=== PATIENT | female | born 1955 | race Caucasian/White ===

== ENCOUNTER 2023-03-18 09:00 | Outpatient (RCR) | payer MEDICARE, OTHER, SELFPAY | END 2023-05-02 16:44 | disposition home or self-care (01) | PROVIDERS: PCP Family Medicine; Visit Provider Family Medicine | DX: M54.50 Low back pain, unspecified (principal); G89.29 Other chronic pain; Z51.89 Encounter for other specified aftercare | CPT/HCPCS: 97110; 97140; 97161; 97535 ==

== ENCOUNTER 2023-03-31 12:54 | Inpatient (IN) | payer MEDICARE, OTHER, SELFPAY ==
[2023-03-31] VITALS (18 sets, daily range): BP systolic 120–185; BP diastolic 60–89; PULSE 82–105; RESP 16–20; TEMP 36.5–37.6; O2SAT 91–99; BMI 42.3; BMI 52.8
--- NOTE | 2023-03-31 13:42 | CRLHL7_ITS ---
For Patients: As a result of the Century Cures Act, medical imaging exams and procedure reports are released immediately into your electronic medical record. You may view this report before your referring provider. If you have questions, please contact your health care provider. INDICATION: Perineal pain; suspect perineal infection or abscess. Comparison: None. TECHNIQUE: CT abdomen and pelvis with intravenous contrast; coronal and sagittal reformats. FINDINGS: No abnormal intra pulmonary nodular densities through the lung bases. No evidence of pleural effusion. Normal size cardiac silhouette without any evidence of pericardial effusion. No focal hepatic or splenic pathology. No pancreatic pathology. Cholelithiasis. No evidence of biliary duct dilatation. No adrenal pathology. A 1.7 x 1 x 1.5 cm nonobstructing calculus lower pole calyx right kidney. No obstructive uropathy or perinephric pathology on either side. No retroperitoneal lymphadenopathy. No evidence of abdominal or pelvic ascites. Normal appendix. No pneumoperitoneum or intestinal obstruction. A 3.3 x 3.1 cm cystic area identified in the region of right adnexa. No obvious pathology involving the perineum on the visualized images. IMPRESSION: 1. No pathology in the imaged perineum; patient is being brought back to the CT and will obtain more images further down into the perineum and I will provide an addendum report. 2. Diverticulosis sigmoid colon without any CT evidence of diverticulitis or abscess. 3. Normal appendix. 4. A 17 x 15 mm nonobstructing calculus right lower pole calyx. 5. Cholelithiasis. Please note that all CT scans at this facility use dose modulation, iterative reconstruction, and/or weight-based dosing when appropriate to reduce radiation dose to as low as reasonably achievable. Dictated by Garland Hubbard MD @ 03/31/2023 2:53:52 PM ----- ADDENDUM ----- Addendum report: Additional images through the perineum are available. There is a 3.2 x 2.9 x 4.6 cm low dense area identified to the right of the midline adjacent to the anus in the right perineum most likely indicating an abscess. No fistulous tract could be identified to the rectum. IMPRESSION: 1. A 4.6 x 3.2 x 2.9 cm low dense area identified to the right of the midline in the perineum most likely representing an abscess. 2. No fistulous communication to the rectum. Dictated by Garland Hubbard MD @ Mar 31 2023 4:55PM Signed by:?Garland Hubbard MD @03/31/2023 2:53:52 PM (Electronically Signed)
--- NOTE | 2023-03-31 13:46 | ED_ITS ---
HPI - General Adult General Chief complaint: Urogenital Problems, Female Stated complaint: Randi area pain Time Seen by Provider: 03/31/23 13:10 History of Present Illness HPI narrative: This is a pleasant 68-year-old female with a history of diabetes, high cholesterol, high blood pressure, obesity, who presents to the ER today with progressively worsening pain involving her perineal area. She went to his TV next concert a few nights ago. The chair that she was assisted in for the [employer] was malfunctioning and would flip up when she tried to sit on it. So she leaned against the top edge of the chair during the concert. Since then she has had pain involving her perineum, posterior to her vagina but anterior to her rectum that is been getting steadily worse. It is painful to sit, painful to lay on her back. There is a swollen lump that seems to be getting bigger. She has not had any vaginal bleeding. The pain does not affect her urination. No rectal pain or pain with bowel movements. The pain does not really seem to be related to that. No bleeding or discharge from the area. No fever. No spreading into her buttock or down her leg. The pains been getting steadily worse, prompting her to come to the ER this afternoon. Related Data Home Medications Medication Instructions Recorded Confirmed atorvastatin 40 mg tablet 40 mg PO 06/19/22 06/19/22 canagliflozin 100 mg tablet 100 mg PO 06/19/22 06/19/22 (Invokana) cyanocobalamin (vitamin B-12) 1,000 mcg PO 06/19/22 06/19/22 1,000 mcg tablet diabetic supplies, miscellan. 06/19/22 06/19/22 gabapentin 400 mg capsule 400 mg PO 06/19/22 06/19/22 hydrochlorothiazide 25 mg tablet 25 mg PO 06/19/22 06/19/22 insulin NPH-regular 70-30 U-100 subcut 06/19/22 06/19/22 insulin 100 unit/mL subcutaneous pen (Novolin 70-30 FlexPen U-100 Insulin) losartan 100 mg tablet 100 mg PO 06/19/22 06/19/22 metformin 1,000 mg tablet 1,000 mg PO 06/19/22 06/19/22 metoprolol tartrate 100 mg tablet 100 mg PO 06/19/22 06/19/22 omeprazole 20 mg capsule,delayed 20 mg PO 06/19/22 06/19/22 release pen needle, diabetic 32 gauge x #50 ea 06/19/22 06/19/22 (BD Rere 2nd Gen Pen Needle) spironolactone 25 mg tablet 25 mg PO 06/19/22 06/19/22 Allergies Allergy/AdvReac Type Severity Reaction Status Date / Time avocado Allergy Gastrointestinal Verified 03/31/23 14:08 Upset Sulfa (Sulfonamide Allergy Gastrointestinal Verified 03/31/23 14:08 Antibiotics) Upset Review of Systems Narrative: Negative [facility] Medical History (Updated 03/31/23 @ 18:11 by Leon Chi MD) Sleep apnea ?G47.30 - Sleep apnea, unspecified (ICD-10) GERD (gastroesophageal reflux disease) ?K21.9 - Gastro-esophageal reflux disease without esophagitis (ICD-10) Heart murmur ?R01.1 - Cardiac murmur, unspecified (ICD-10) Obstructive sleep apnea treated with continuous positive airway pressure (CPAP) ?G47.33 - Obstructive sleep apnea (adult) (pediatric) (ICD-10) ?Z99.89 - Dependence on other enabling machines and devices (ICD-10) Morbid obesity ?E66.01 - Morbid (severe) obesity due to excess calories (ICD-10) Hypertension ?I10 - Essential (primary) hypertension (ICD-10) Hyperlipidemia ?E78.5 - Hyperlipidemia, unspecified (ICD-10) Diabetic neuropathy ?E11.40 - Type 2 diabetes mellitus with diabetic neuropathy, unspecified (ICD-10) Cellulitis in diabetic foot ?E11.628 - Type 2 diabetes mellitus with other skin complications (ICD-10) ?L03.119 - Cellulitis of unspecified part of limb (ICD-10) Anticoagulation goal of INR 2 to 3 ?Z51.81 - Encounter for therapeutic drug level monitoring (ICD-10) ?Z79.01 - buttermaker (current) use of anticoagulants (ICD-10) Type 2 diabetes mellitus ?E11.9 - Type 2 diabetes mellitus without complications (ICD-10) Surgical History (Updated 06/19/22 @ 08:21 by Neida Elizondo ~ [employer], [employer]) Status post hysterectomy ?Z90.710 - Acquired absence of both cervix and uterus (ICD-10) 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) ?Z96.651 - Presence of right artificial knee joint (ICD-10) Status post total left knee replacement (10/20/18) ?Z96.652 - Presence of left artificial knee joint (ICD-10) Family History (Updated 06/19/22 @ 08:37 by Neida El[facility] ~ [facility] Father Myocardial infarction Mother High blood pressure Brother Diabetes High blood pressure Maternal Grandmother Diabetes Coronary artery disease Social History What is your current living situation?: I presently have a place to live Problems where you live: no known problems Problems where you live details: none In the past 12 months, utilities in danger of being shut off: no In the past 12 mos, have been you worried that your food would run out before you had money to buy more?: never true In the past 12 mos, the food you bought just didn't last and you didn't have money to buy more?: never true Highest level of school completed/degree received: Associate degree: occupational, technical, vocational program Smoking Status: Former smoker How often do you have a drink containing alcohol: 4 or more times a week How many standard drinks containing alcohol do you have on a typical day: 1 or 2 How often do you have six or more drinks on one occasion: Never AUDIT-C Alcohol total score: 4 Non-prescribed substance use: denies use Caffeine: Yes (couple cups of coffee) How often does anyone, including family, friends and others, physically hurt you : never How often does anyone, including family, friends and others, insult or talk down to you: never How often does anyone, including family, friends and others, threaten you with harm: never How often does anyone, including family, friends and others, scream or curse at you: never service: No Exam Narrative: Exam Narrative: Constitutional: Appears well-developed and well-nourished. Alert. Conversant. Non toxic. HENT: Head: Atraumatic. Nose: Nose normal. Mouth/Throat: Oral mucosa is clear and moist. no trismus. Pharynx normal. Tonsils symmetric. No tonsillar enlargement, erythema, or exudate. Eyes: Conjunctivae normal. EOM normal. Pupils equal, round, and reactive to light. No scleral icterus. Neck: Normal range of motion. Neck supple. No tracheal deviation present. Cardiovascular: Normal rate, regular rhythm. No gallop. No friction rub. No murmur heard. Symmetric radial artery pulses Pulmonary/Chest: Effort normal. No stridor. No respiratory distress. No wheezes. No rales. No rhonchi . No tenderness. Abdominal: Soft. Bowel sounds normal. No distension. No mass. No tenderness. No rebound. No guarding. Pelvic exam: Performed with female business services director. Patient preferred to do the exam laying in the left lateral decubitus position with her right leg forward. Visualized portions of the external vagina and posterior vagina appear normal. No speculum or cervical exam was performed. There is no evidence for swelling or inflammation of the labia majora or minora. No evidence for Bartholin gland cyst. External rectum is normal. She does have a couple of small hemorrhoids that appear not to be thrombosed. No evidence for anal fissure. There does appear to be erythema and induration of the tissue of the perineum. There is a 1 x 3 cm area of erythematous, fluctuant soft tissue on the perineum more on the right side than on the left as well as tenderness of her left proximal/medial buttock. No redness or warmth of the buttock skin itself. Musculoskeletal: RUE: Normal range of motion. No tenderness. No deformity LUE: Normal range of motion. No tenderness. No deformity RLE: Normal range of motion. No edema. No tenderness. No deformity LLE: Normal range of motion. No edema. No tenderness. No deformity Lymph: No cervical adenopathy. Neurological: Alert and oriented to person, place, and time. Normal strength. CN II-VII intact. No sensory deficit. GCS eye subscore is 4. GCS verbal subscore is 5. GCS motor subscore is 6. Normal coordination Skin: Skin is warm and dry. No rash noted. No pallor. Normal capillary refill. Psychiatric: Normal mood. Normal affect. Const: Vital Signs, click to edit/add: Vital Signs - 24 hr 03/31/23 13:00 03/31/23 15:26 Temperature 98.5 F Pulse Rate [Right Pulse Oximeter] 87 86 Respiratory Rate 18 20 Blood Pressure [Ri ght Upper Arm] 151/89 H 129/60 Pulse Oximetry 96 92 Oxygen Delivery Me thod Room Air Room Air Course Vital Signs Vital signs: Initial Vital Signs Temperature 98.5 F 03/31/23 13:00 Temperature Source Temporal Artery Scan 03/31/23 13:00 Pulse Rate 87 03/31/23 13:00 Pulse Rhythm Regular 03/31/23 13:00 Pulse Strength 3+ Normal 03/31/23 13:00 Respiratory Rate 18 03/31/23 13:00 Blood Pressure 151/89 H 03/31/23 13:00 Blood Pressure Mean 109 H 03/31/23 13:00 Blood Pressure Position Sitting 03/31/23 13:00 Pulse Oximetry 96 03/31/23 13:00 Oxygen Delivery Method Room Air 03/31/23 13:00 Vital Signs Temperature 98.5 F 03/31/23 13:00 Pulse Rate 87 03/31/23 13:00 Respiratory Rate 18 03/31/23 13:00 Blood Pressure 151/89 H 03/31/23 13:00 Pulse Oximetry 96 03/31/23 13:00 Oxygen Delivery Method Room Air 03/31/23 13:00 Temperature 98.9 F 03/31/23 18:44 Pulse Rate 82 03/31/23 18:44 Respiratory Rate 20 03/31/23 18:44 Blood Pressure 147/82 H 03/31/23 18:44 Pulse Oximetry 96 03/31/23 18:44 Oxygen Delivery Method Room Air 03/31/23 18:44 Medical Decision Making [facility] Narrative Medical decision making narrative: Pleasant 68-year-old female presenting the ER today with progressively worsening perineal pain over the past few days. It started after she sat on the upper edge of a chair during the concert a few nights ago. Differential would include compression injury/hematoma/trauma. Would also include infectious etiology such as cellulitis, perineal abscess, Faye's, vaginal pathology such as labial abscess or hematoma, Bartholin gland cyst. Differential would also include rectal pathology such as hemorrhoid, fissure. Clinical exam reveals evidence for an indurated inflamed pinkish area on the right side of the perineum. Differential would primarily include abscess/infection verses hematoma. She is not febrile. White count is borderline upper limits of normal. CT scan does show a 4.6 x 3.2 x 2.9 cm area of fluid just to the right the midline in the perineum which is concerning for abscess both clinically and radiographically. This would be too large to be simply hematoma. She is hemodynamically stable but lactic acid mildly elevated at 3.1. 2 L IV fluid bolus ordered and repeat lactic acid[]. Discussed with surgery, Dr. sylvester. She will take the patient to the OR for exploration and drainage. We will start Shaniquan here in the ER. Lab Data Labs: Lab Results 03/31/23 Range/Units 13:50 WBC 10.90 (4.50-11.00) K/uL RBC 4.93 (4.00-5.20) m/uL Hgb 10.0 L (12.0-16.0) gm/dL Hct 36.2 (33.0-51.0) % MCV 73 L (80-100) fL MCH 20 L (26-34) pg MCHC 28 L (32-36) gm/dL RDW Coeff of Susan 18.2 H (11.5-15.5) % Plt Count 285 (140-440) K/uL Neut % (Auto) 75.2 H (42.0-72.0) % Lymph % (Auto) 12.9 L (20-44) % Jefferson % (Auto) 10.1 (0.0-11.0) % Eos % (Auto) 1.3 (0.0-7.0) % Baso % (Auto) 0.3 (0.0-3.0) % Neut # (Auto) 8.20 H (1.7-7.0) K/uL Lymph # (Auto) 1.40 (0.90-2.90) K/uL Jefferson # (Auto) 1.10 H (0.00-0.90) K/UL Eos # (Auto) 0.14 (0.00-0.50) K/uL Baso # (Auto) 0.03 (0.00-0.30) K/uL Abs Immat Gran (auto) 0.02 (0.00-0.30) K/uL Imm/Tot Granulo (auto) 0.2 % Sodium 136 (135-149) mmol/L Potassium 4.0 (3.6-5.1) mmol/L Chloride 98 (96-114) mmol/L Carbon Dioxide 27 (20-32) mmol/L BUN 27 (7-30) mg/dL Creatinine 1.2 (0.5-1.5) mg/dL Estimated Creat Clear 44.85 Estimated GFR 50 ml/min Glucose 192 H (60-115) mg/dL Lactate 3.1 H (0.5-1.9) mmol/L Calcium 8.8 (8.4-10.6) mg/dL POC Creatinine 1.3 (0.6-1.3) mg/dl Imaging Data CT scan - abdomen: Attestation: I have reviewed the pertinent imaging results. Radiologist's impression: IMPRESSION: 1. No pathology in the imaged perineum; patient is being brought back to the CT and will obtain more images further down into the perineum and I will provide an addendum report. 2. Diverticulosis sigmoid colon without any CT evidence of diverticulitis or abscess. 3. Normal appendix. 4. A 17 x 15 mm nonobstructing calculus right lower pole calyx. 5. Cholelithiasis. IMPRESSION: 1. No pathology in the imaged perineum; patient is being brought back to the CT and will obtain more images further down into the perineum and I will provide an addendum report. 2. Diverticulosis sigmoid colon without any CT evidence of diverticulitis or abscess. 3. Normal appendix. 4. A 17 x 15 mm nonobstructing calculus right lower pole calyx. 5. Cholelithiasis. Please note that all CT scans at this facility use dose modulation, iterative reconstruction, and/or weight-based dosing when appropriate to reduce radiation dose to as low as reasonably achievable. Dictated by Garland Hubbard MD @ 03/31/2023 2:53:52 PM ----- ADDENDUM ----- Addendum report: Additional images through the perineum are available. There is a 3.2 x 2.9 x 4.6 cm low dense area identified to the right of the midline adjacent to the anus in the right perineum most likely indicating an abscess. No fistulous tract could be identified to the rectum. IMPRESSION: 1. A 4.6 x 3.2 x 2.9 cm low dense area identified to the right of the midline in the perineum most likely representing an abscess. 2. No fistulous communication to the rectum. Discharge Plan Discharge Clinical Impression: Abscess of perineum Patient Disposition: Admitted As Observation
[2023-03-31 14:01] LABS: Lactate* 3.1 mmol/L (0.5-1.9)
[2023-03-31] MEDS: LIDOCAINE/PRILOCAINE 2.5-2.5% CREAM 1 APPLIC TOPICAL (14:01)
[2023-03-31 14:02] LABS: Basophils Absolute Auto 0.03 K/uL (0.00-0.30); Basophils Percent Auto 0.3 % (0.0-3.0); Eosinophils Absolute Auto 0.14 K/uL (0.00-0.50); Eosinophils Percent Auto 1.3 % (0.0-7.0); Hematocrit 36.2 % (33.0-51.0); Immature Granulocytes Abs Auto 0.02 K/uL (0.00-0.30); Immature Granulocytes Pct Auto 0.2 %; Lymphocytes Percent Auto 12.9 % (20-44); Mean Corpuscular HGB Conc 28 gm/dL (32-36); Mean Corpuscular Hemoglobin 20 pg (26-34); Mean Corpuscular Volume 73 fL (80-100); Monocytes Percent Auto 10.1 % (0.0-11.0); Neutrophils Percent Auto 75.2 % (42.0-72.0); Platelet Count* 285 K/uL (140-440); RDW Coefficient of Variation % 18.2 % (11.5-15.5); Red Blood Count 4.93 m/uL (4.00-5.20)
[2023-03-31 14:05] LABS: Slide Review Reflex No
[2023-03-31 14:16] LABS: Chloride* 98 mmol/L (96-114); Sodium* 136 mmol/L (135-149)
[2023-03-31 14:19] LABS: Carbon Dioxide* 27 mmol/L (20-32); Creatinine* 1.2 mg/dL (0.5-1.5); Est. Creatinine Clearance* 44.85; Estimated Glomerular Filt Rate 50 ml/min
[2023-03-31 14:20] LABS: Blood Urea Nitrogen* 27 mg/dL (7-30); Calcium* 8.8 mg/dL (8.4-10.6); Glucose* 192 mg/dL (60-115)
[2023-03-31 14:29] LABS: Creatinine, Point-of-Care* 1.3 mg/dl (0.6-1.3)
[2023-03-31] MEDS: KETOROLAC 15 MG/ML inj IVP (15:36)
[2023-03-31] MEDS: 0.9 % SODIUM CHLORIDE 1000 ml 1,000 ML IV ×2 (17:37→21:12)
[2023-03-31] MEDS: PIPERACILLIN/TAZOBACTAM 4.5 GM in 0.9 % SODIUM CHLORIDE Mini-bag 100 ML IVPB (17:37)
--- NOTE | 2023-03-31 17:48 | P.IMHP_ITS ---
Hospitalist- H&P: HPI History of Present Illness Date Seen: 03/31/23 Chief complaint: Randi area pain Narrative: Carmen Torres is a 68 year old female with past medical history of MATIAS (on cpap), Type II DM, morbid obesity pain presenting for evaluation of pain in sacrum. The patient went to a concern in [place] on Saturday (Dimitri Tate). She had an uncomfortable chair and sat on the ledge for most of concert. She has had progressive worsening pain and presented to ED where CT AP showed a 4.6 x 3.2 x 2.9 cm area of fluid just to the right the midline in the perineum. The patient was afebrile, HD stable. Notable labs included normal WBC, lactate 3.1. She was given IVF bolus and zosyn. She denies chest pain, sob, fever, nausea, vomiting. IMPRESSION: 1. No pathology in the imaged perineum; patient is being brought back to the CT and will obtain more images further down into the perineum and I will provide an addendum report. 2. Diverticulosis sigmoid colon without any CT evidence of diverticulitis or abscess. 3. Normal appendix. 4. A 17 x 15 mm nonobstructing calculus right lower pole calyx. 5. Cholelithiasis. [facility] Medical History (Updated 03/31/23 @ 18:11 by Leon Chi MD) Sleep apnea ?G47.30 - Sleep apnea, unspecified (ICD-10) GERD (gastroesophageal reflux disease) ?K21.9 - Gastro-esophageal reflux disease without esophagitis (ICD-10) Heart murmur ?R01.1 - Cardiac murmur, unspecified (ICD-10) Obstructive sleep apnea treated with continuous positive airway pressure (CPAP) ?G47.33 - Obstructive sleep apnea (adult) (pediatric) (ICD-10) ?Z99.89 - Dependence on other enabling machines and devices (ICD-10) Morbid obesity ?E66.01 - Morbid (severe) obesity due to excess calories (ICD-10) Hypertension ?I10 - Essential (primary) hypertension (ICD-10) Hyperlipidemia ?E78.5 - Hyperlipidemia, unspecified (ICD-10) Diabetic neuropathy ?E11.40 - Type 2 diabetes mellitus with diabetic neuropathy, unspecified (ICD-10) Cellulitis in diabetic foot ?E11.628 - Type 2 diabetes mellitus with other skin complications (ICD-10) ?L03.119 - Cellulitis of unspecified part of limb (ICD-10) Anticoagulation goal of INR 2 to 3 ?Z51.81 - Encounter for therapeutic drug level monitoring (ICD-10) ?Z79.01 - manager long term care (current) use of anticoagulants (ICD-10) Type 2 diabetes mellitus ?E11.9 - Type 2 diabetes mellitus without complications (ICD-10) Surgical History (Updated 06/19/22 @ 08:21 by Neida Elizondo ~ [facility]) Status post hysterectomy ?Z90.710 - Acquired absence of both cervix and uterus (ICD-10) 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) ?Z96.651 - Presence of right artificial knee joint (ICD-10) Status post total left knee replacement (10/20/18) ?Z96.652 - Presence of left artificial knee joint (ICD-10) Family History (Updated 06/19/22 @ 08:37 by Neida Elizondo ~ [facility], [facility]) Father Myocardial infarction Mother High blood pressure Brother Diabetes High blood pressure Maternal Grandmother Diabetes Coronary artery disease Social History What is your current living situation?: I presently have a place to live Problems where you live: no known problems Problems where you live details: none In the past 12 months, utilities in danger of being shut off: no In the past 12 mos, have been you worried that your food would run out before you had money to buy more?: never true In the past 12 mos, the food you bought just didn't last and you didn't have money to buy more?: never true Highest level of school completed/degree received: Associate degree: occupational, technical, vocational program Smoking Status: Former smoker How often do you have a drink containing alcohol: 4 or more times a week How many standard drinks containing alcohol do you have on a typical day: 1 or 2 How often do you have six or more drinks on one occasion: Never AUDIT-C Alcohol total score: 4 Non-prescribed substance use: denies use Caffeine: Yes (couple cups of coffee) How often does anyone, including family, friends and others, physically hurt you : never How often does anyone, including family, friends and others, insult or talk down to you: never How often does anyone, including family, friends and others, threaten you with harm: never How often does anyone, including family, friends and others, scream or curse at you: never service: No Meds Home Medications and Allergies Home Medications Medication Instructions Recorded Confirmed Type atorvastatin 40 mg tablet 40 mg PO 06/19/22 06/19/22 History canagliflozin 100 mg tablet 100 mg PO 06/19/22 06/19/22 History (Invokana) cyanocobalamin (vitamin B-12) 1,000 mcg PO 06/19/22 06/19/22 History 1,000 mcg tablet diabetic supplies, miscellan. 06/19/22 06/19/22 History gabapentin 400 mg capsule 400 mg PO 06/19/22 06/19/22 History hydrochlorothiazide 25 mg tablet 25 mg PO 06/19/22 06/19/22 History insulin NPH-regular 70-30 U-100 subcut 06/19/22 06/19/22 History insulin 100 unit/mL subcutaneous pen (Novolin 70-30 FlexPen U-100 Insulin) losartan 100 mg tablet 100 mg PO 06/19/22 06/19/22 History metformin 1,000 mg tablet 1,000 mg PO 06/19/22 06/19/22 History metoprolol tartrate 100 mg tablet 100 mg PO 06/19/22 06/19/22 History omeprazole 20 mg capsule,delayed 20 mg PO 06/19/22 06/19/22 History release pen needle, diabetic 32 gauge x #50 ea 06/19/22 06/19/22 History 5/32 (BD Rere 2nd Gen Pen Needle) spironolactone 25 mg tablet 25 mg PO 06/19/22 06/19/22 History Allergies Allergy/AdvReac Type Severity Reaction Status Date / Time avocado Allergy Gastrointestinal Verified 03/31/23 14:08 Upset Sulfa (Sulfonamide Allergy Gastrointestinal Verified 03/31/23 14:08 Antibiotics) Upset Exam Narrative: Exam Narrative: Gen: no acute distress HEENT: NCAT EOMI mmm Neck: Supple CV: RRR normal s1 s2 Lungs: CTAB Abd: Soft,nt, nd Neuro: Alert, oriented, CN grossly intact; nonfocal screening?exam Psych: appropriate affect MSK: age appropriate muscle mass Skin; Warm, dry no rash on face Const: Vital Signs, click to edit/add: Vital Signs - 24 hr 08/13/23 13:00 03/31/23 15:26 Temperature 98.5 F Pulse Rate [Right Pulse Oximeter] 87 86 Respiratory Rate 18 20 Blood Pressure [Ri ght Upper Arm] 151/89 H 129/60 Pulse Oximetry 96 92 Oxygen Delivery Me thod Room Air Room Air Hospitalist - H&P: Result Labs Labs: Short CBC 03/31/23 Range/Units 13:50 WBC 10.90 (4.50-11.00) K/uL Hgb 10.0 L (12.0-16.0) gm/dL Hct 36.2 (33.0-51.0) % Plt Count 285 (140-440) K/uL BMP 03/31/23 13:50 Sodium 136 Potassium 4.0 Chloride 98 Carbon Dioxide 27 BUN 27 Creatinine 1.2 Glucose 192 H Calcium 8.8 Assessment and Plan Assessment and plan (1) Abscess of perineum: Status: Acute (2) Morbid obesity with BMI of 50.0-59.9, adult: Problem comment: BMI 52.9 Status: Acute (3) Type 2 diabetes mellitus: Status: Acute Plan Assessment: Carmen Torres is a 68 year old female with past medical history of MATIAS (on cpap), Type II DM, morbid obesity pain presenting for evaluation of pain in sacrum. The patient went to a concern in [place] on Saturday (Dimitri Tate). She had an uncomfortable chair and sat on the ledge for most of concert. She has had progressive worsening pain and presented to ED where CT AP showed a 4.6 x 3.2 x 2.9 cm area of fluid just to the right the midline in the perineum. The patient was afebrile, HD stable. Notable labs included normal WBC, lactate 3.1. She was given IVF bolus and zosyn. She denies chest pain, sob, fever, nausea, vomiting. 1. Perineal abscess 2. Hx of Type II DM 3. Lactic acidosis 4. CKD 3 5. Anemia of CKD/microcytic anemia 6. Hx of MATIAS on CPAP Plan -admit to inpatient -IVF -continue zoysn -NPO -pain control -SSI -Gen Surg consult for anticipated I&D -f/u Cx -cpap Code-Full DVT ppx-heparin subq following surgery
--- NOTE | 2023-03-31 18:16 | ED.NURSE ---
report given to giorgio Hawley transferred to [facility] via wheelchair.
--- NOTE | 2023-03-31 19:37 | PC.NURSE ---
End of Shift: Patient pleasant and cooperative, arrived to the floor about 1934. Patient reported perineal pain 10/26. Patient vitally stable, lungs clear, BS WNL, IV running bolus. Patient independent and urinated in toilet upon arrival. Admission completed.
[2023-03-31] MEDS: 0.9 % SODIUM CHLORIDE 1000 ml 1,000 ML 125 ML IV (19:47)
--- NOTE | 2023-03-31 20:33 | PM.GSCN ---
History of Present Illness Consult details Date Seen: 03/31/23 Consult date: 03/31/23 Narrative: Patient is a 68-year-old female, with morbidly obese, type 2 diabetic on insulin, who presented to the emergency department with worsening perianal pain. She states that the pain started on Saturday and has just increased in intensity. It is uncomfortable to lie down or sit. She denies any drainage from it. She does report some subjective fevers and chills at home. She has never had anything like this before. Denies any diarrhea or constipation. Her last bowel movement was this morning and normal per the patient. Denies any blood in the stool or pain with a bowel movement. She does take insulin on a daily basis. She reports her sugars have been around 130, but admits to not checking them every day. Review of Systems Status of ROS: Reports: 6 or more systems reviewed and unremarkable except as noted in History and below [facility] Medical History (Updated 03/31/23 @ 20:37 by Kelle Guillermo MD) Sleep apnea ?G47.30 - Sleep apnea, unspecified (ICD-10) GERD (gastroesophageal reflux disease) ?K21.9 - Gastro-esophageal reflux disease without esophagitis (ICD-10) Heart murmur ?R01.1 - Cardiac murmur, unspecified (ICD-10) Obstructive sleep apnea treated with continuous positive airway pressure (CPAP) ?G47.33 - Obstructive sleep apnea (adult) (pediatric) (ICD-10) ?Z99.89 - Dependence on other enabling machines and devices (ICD-10) Morbid obesity ?E66.01 - Morbid (severe) obesity due to excess calories (ICD-10) Hypertension ?I10 - Essential (primary) hypertension (ICD-10) Hyperlipidemia ?E78.5 - Hyperlipidemia, unspecified (ICD-10) Diabetic neuropathy ?E11.40 - Type 2 diabetes mellitus with diabetic neuropathy, unspecified (ICD-10) Cellulitis in diabetic foot ?E11.628 - Type 2 diabetes mellitus with other skin complications (ICD-10) ?L03.119 - Cellulitis of unspecified part of limb (ICD-10) Anticoagulation goal of INR 2 to 3 ?Z51.81 - Encounter for therapeutic drug level monitoring (ICD-10) ?Z79.01 - long term care phlebotomist (current) use of anticoagulants (ICD-10) Type 2 diabetes mellitus ?E11.9 - Type 2 diabetes mellitus without complications (ICD-10) Surgical History (Updated 06/19/22 @ 08:21 by Neida Elizondo ~ [facility]) Status post hysterectomy ?Z90.710 - Acquired absence of both cervix and uterus (ICD-10) 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) ?Z96.651 - Presence of right artificial knee joint (ICD-10) Status post total left knee replacement (10/20/18) ?Z96.652 - Presence of left artificial knee joint (ICD-10) Family History (Updated 06/19/22 @ 08:37 by Neida Elizondo ~ [facility], [facility]) Father Myocardial infarction Mother High blood pressure Brother Diabetes High blood pressure Maternal Grandmother Diabetes Coronary artery disease Social History What is your current living situation?: I presently have a place to live Problems where you live: no known problems Problems where you live details: none In the past 12 months, utilities in danger of being shut off: no In the past 12 mos, have been you worried that your food would run out before you had money to buy more?: never true In the past 12 mos, the food you bought just didn't last and you didn't have money to buy more?: never true Highest level of school completed/degree received: Associate degree: occupational, technical, vocational program Smoking Status: Former smoker How often do you have a drink containing alcohol: 4 or more times a week How many standard drinks containing alcohol do you have on a typical day: 1 or 2 How often do you have six or more drinks on one occasion: Never AUDIT-C Alcohol total score: 4 Non-prescribed substance use: denies use Caffeine: Yes (couple cups of coffee) How often does anyone, including family, friends and others, physically hurt you: never How often does anyone, including family, friends and others, insult or talk down to you: never How often does anyone, including family, friends and others, threaten you with harm: never How often does anyone, including family, friends and others, scream or curse at you: never service: No Meds Home Medications and Allergies Home Medications Medication Instructions Recorded Confirmed Type atorvastatin 40 mg tablet 40 mg PO 06/19/22 06/19/22 History canagliflozin 100 mg tablet 100 mg PO 06/19/22 06/19/22 History (Invokana) cyanocobalamin (vitamin B-12) 1,000 mcg PO 06/19/22 06/19/22 History 1,000 mcg tablet diabetic supplies, miscellan. 06/19/22 06/19/22 History gabapentin 400 mg capsule 400 mg PO 06/19/22 06/19/22 History hydrochlorothiazide 25 mg tablet 25 mg PO 06/19/22 06/19/22 History insulin NPH-regular 70-30 U-100 subcut 06/19/22 06/19/22 History insulin 100 unit/mL subcutaneous pen (Novolin 70-30 FlexPen U-100 Insulin) losartan 100 mg tablet 100 mg PO 06/19/22 06/19/22 History metformin 1,000 mg tablet 1,000 mg PO 06/19/22 06/19/22 History metoprolol tartrate 100 mg tablet 100 mg PO 06/19/22 06/19/22 History omeprazole 20 mg capsule,delayed 20 mg PO 06/19/22 06/19/22 History release pen needle, diabetic 32 gauge x #50 ea 06/19/22 06/19/22 History 5/32 (BD Rere 2nd Gen Pen Needle) spironolactone 25 mg tablet 25 mg PO 06/19/22 06/19/22 History Allergies Allergy/AdvReac Type Severity Reaction Status Date / Time avocado Allergy Gastrointestinal Verified 03/31/23 14:08 Upset Sulfa (Sulfonamide Allergy Gastrointestinal Verified 03/31/23 14:08 Antibiotics) Upset Exam Narrative: Exam Narrative: General: Alert and oriented, no acute distress Respiratory: Equal breath rise bilaterally, maintained on room air Abdomen: Obese abdomen Const: Vital Signs, click to edit/add: Vital Signs - 24 hr 03/31/23 13:00 03/31/23 15:26 03/31/23 18:35 Temperature 98.5 F Pulse Rate [Pulse Oximeter] Pulse Rate [Right Pulse Oximeter] 87 86 Respiratory Rate 18 20 Blood Pressure [Ri ght Forearm] Blood Pressure [Ri ght Upper Arm] 151/89 H 129/60 Pulse Oximetry 96 92 96 Oxygen Delivery Me thod Room Air Room Air Room Air 03/31/23 18:44 03/31/23 19:46 Temperature 98.9 F 98.1 F Pulse Rate [Pulse Oximeter] 82 82 Pulse Rate [Right Pulse Oximeter] Respiratory Rate 20 20 Blood Pressure [Ri ght Forearm] 147/82 H 120/74 Blood Pressure [Ri t Upper Arm] Pulse Oximetry 96 93 Oxygen Delivery Me thod Room Air Room Air Results Labs Labs: Abnormal lab results 03/31/23 Range/Units 13:50 Hgb 10.0 L (12.0-16.0) gm/dL MCV 73 L (80-100) fL MCH 20 L (26-34) pg MCHC 28 L (32-36) gm/dL RDW Coeff of Susan 18.2 H (11.5-15.5) % Neut % (Auto) 75.2 H (42.0-72.0) % Lymph % (Auto) 12.9 L (20-44) % Neut # (Auto) 8.20 H (1.7-7.0) K/uL [place] # (Auto) 1.10 H (0.00-0.90) K/UL Glucose 192 H (60-115) mg/dL Lactate 3.1 H (0.5-1.9) mmol/L Diabetes panel 03/31/23 Range/Units 13:50 Sodium 136 (135-149) mmol/L Potassium 4.0 (3.6-5.1) mmol/L Chloride 98 (96-114) mmol/L Carbon Dioxide 27 (20-32) mmol/L BUN 27 (7-30) mg/dL Creatinine 1.2 (0.5-1.5) mg/dL Glucose 192 H (60-115) mg/dL Calcium 8.8 (8.4-10.6) mg/dL Calcium panel 03/31/23 Range/Units 13:50 Calcium 8.8 (8.4-10.6) mg/dL Pituitary panel 03/31/23 Range/Units 13:50 Sodium 136 (135-149) mmol/L Potassium 4.0 (3.6-5.1) mmol/L Chloride 98 (96-114) mmol/L Carbon Dioxide 27 (20-32) mmol/L BUN 27 (7-30) mg/dL Creatinine 1.2 (0.5-1.5) mg/dL Glucose 192 H (60-115) mg/dL Calcium 8.8 (8.4-10.6) mg/dL Adrenal panel 03/31/23 Range/Units 13:50 Sodium 136 (135-149) mmol/L Potassium 4.0 (3.6-5.1) mmol/L Chloride 98 (96-114) mmol/L Carbon Dioxide 27 (20-32) mmol/L BUN 27 (7-30) mg/dL Creatinine 1.2 (0.5-1.5) mg/dL Glucose 192 H (60-115) mg/dL Calcium 8.8 (8.4-10.6) mg/dL All other labs normal. Imaging Abdomen CT scan report/results: report reviewed and image reviewed Assessment and Plan Assessment and plan (1) Perianal abscess: Status: Acute Plan Patient is a 68-year-old female with clinical workup and imaging consistent with a perianal abscess. The abscess measurements on CT scan or a little over 6 cm, just anterior to the anus on the perineum. Given the size and location of the abscess, I have recommended incision and drainage in the operating room. Risks and benefits of excision were discussed at length the patient and her . Risks included, but were not limited to: Bleeding, infection, risk of damage to surrounding structures and possible need for additional procedures. All questions and concerns were addressed with patient agreeing to proceed. -patient to go to the operating room this evening for drainage
[2023-03-31] MEDS: BUPIVACAINE 0.25% 30 ML INJECTION (21:36)
[2023-03-31] MEDS: LIDOCAINE 1 % PF 30 ML INJECTION (21:36)
--- NOTE | 2023-03-31 21:53 | PM.GSPRC ---
Operative Note Pre-op diagnosis: Perianal abscess Post-op diagnosis: Same Type of Procedure: Exam under anesthesia. Incision and drainage perianal abscess Indications: Patient is a 68-year-old female who presented to the emergency department with clinical workup consistent with a perianal abscess. Recommendations for incision and drainage in the operating room. Risks and benefits of operative intervention were discussed at length with the patient. Please see consultation note for full discussion. All questions and concerns were addressed with patient agreeing to proceed. Procedure Description: After discussing the risks and benefits of the procedure, the patient signed informed consent.? The operative site was marked and the patient was brought to the operating room. They were placed in the supine position, general anesthesia was administered, and the patient was intubated by Anesthesia without difficulty. The patient was then transferred to the Operating Room table, placed in the prone jackknife position with appropriate bumps and padding. Care was taken to ensure the genitalia and breasts were properly positioned on the hip and chest rolls, respectively. The shoulders and arms were positioned with care to protect the brachial plexus. The buttocks were taped laterally. A sterile prep and drape was in the usual fashion. A formal timeout for patient safety was performed in accordance with hospital protocol, thereby correctly matching this patient with their diagnosis and intended procedure. External examination, digital rectal examination, and anoscopic examination were all done and revealed erythema, induration and fluctuance of the perianal anterior and extending anterior lateral. An 11 blade was used to make a cruciate incision over this area, with good return of pus. A culture was taken. Careful examination failed to identify a perianal fistula. The skin corners of the cruciate incision were trimmed off to allow for proper drainage. A finger was used to bluntly debride the abscess cavity of inflammatory bridges. There appeared to be no undrained collections. Hemostasis was excellent. The resulting cavity measured 6 cm by 4 cm x 3 cm in size. The wound was packed with gauze for hemostasis. The patient tolerated procedure well. There were no apparent complications. Instrument, sponge, and needle counts were correct at the end of the case. Findings: Perianal abscess Anesthesia: GETA Surgeon: Kelle Guillermo MD Estimated blood loss (mL): 2 Condition: stable Disposition: PACU Date of procedure: 03/31/23
--- NOTE | 2023-03-31 22:09 | W.ANESCHARGE ---
Anesthesia Charges Start Date/Time Anesthesia Start Date: 03/31/23 Anesthesia Start Time: 21:12 Stop Date/Time Anesthesia Stop Date: 03/31/23 Anesthesia Stop Time: 22:04 Summary Emergency: [employer]
[2023-04-01] VITALS (8 sets, daily range): BP systolic 113–138; BP diastolic 61–81; PULSE 82–110; RESP 16–110; TEMP 36.1–36.3; O2SAT 91–93
[2023-04-01] MEDS: PIPERACILLIN/TAZOBACTAM 3.375 GM in 0.9 % SODIUM CHLORIDE Mini-bag 100 ML IVPB (00:09)
[2023-04-01] MEDS: 0.9 % SODIUM CHLORIDE 1000 ml 1,000 ML 125 ML IV (00:10)
[2023-04-01 06:49] LABS: Basophils Absolute Auto 0.04 K/uL (0.00-0.30); Basophils Percent Auto 0.4 % (0.0-3.0); Eosinophils Absolute Auto 0.14 K/uL (0.00-0.50); Eosinophils Percent Auto 1.4 % (0.0-7.0); Hemoglobin* 9.2 gm/dL (12.0-16.0); Immature Granulocytes Abs Auto 0.13 K/uL (0.00-0.30); Immature Granulocytes Pct Auto 1.3 %; Lactate* 1.1 mmol/L (0.5-1.9); Lymphocytes Percent Auto 16.8 % (20-44); Mean Corpuscular HGB Conc 27 gm/dL (32-36); Mean Corpuscular Hemoglobin 20 pg (26-34); Mean Corpuscular Volume 74 fL (80-100); Monocytes Percent Auto 10.3 % (0.0-11.0); Neutrophils Absolute Auto 6.88 K/uL (1.7-7.0); Neutrophils Percent Auto 69.8 % (42.0-72.0); Platelet Count* 269 K/uL (140-440); RDW Coefficient of Variation % 18.5 % (11.5-15.5); Red Blood Count 4.58 m/uL (4.00-5.20); White Blood Count* 9.87 K/uL (4.50-11.00)
[2023-04-01 07:09] LABS: Chloride* 100 mmol/L (96-114); Potassium* 4.1 mmol/L (3.6-5.1); Sodium* 137 mmol/L (135-149)
[2023-04-01 07:12] LABS: Blood Urea Nitrogen* 24 mg/dL (7-30); Carbon Dioxide* 31 mmol/L (20-32); Creatinine* 1.1 mg/dL (0.5-1.5); Estimated Glomerular Filt Rate 55 ml/min
[2023-04-01 07:13] LABS: Calcium* 8.3 mg/dL (8.4-10.6); Glucose* 227 mg/dL (60-115)
[2023-04-01 07:31] LABS: Hemoglobin A1C* 7.27 % (0-5.6)
[2023-04-01 07:33] LABS: Slide Review Reflex Yes
--- NOTE | 2023-04-01 07:49 | PC.NURSE ---
END OF SHIFT NOTE: PT PLEASANT AND COOPERATIVE. PT CP, SOB, N/V. AMBULATES WITH SBA. VSS ON RA; AFEBRILE. PT IS POST OP DRAINING OF PERINEUM ABSCESS; DRESSING INTACT. CALL LIGHT WITHIN PT?S REACH. LEFT AC IV INFILTRATED AND DC'D. NEW IV ATTEMPTED AND UNSUCCESSFUL. REPORTED TO DANIA CONTRERAS.
[2023-04-01 07:56] LABS: Slide Review Acceptable Review (Acceptable)
[2023-04-01] MEDS: LOSARTAN POTASSIUM 50 MG TABLET 100 MG PO (09:12)
[2023-04-01] MEDS: SPIRONOLACTONE 25 MG TABLET PO (09:12)
[2023-04-01] MEDS: METOPROLOL TARTRATE 100 MG TABLET PO (09:12)
[2023-04-01] MEDS: hydroCHLOROthiazide 25 MG TABLET PO (09:12)
[2023-04-01] MEDS: OMEPRAZOLE 20 MG CAPSULE DR PO (09:12)
--- NOTE | 2023-04-01 10:07 | CRLHL7_ITS ---
For Patients: As a result of the Century Cures Act, medical imaging exams and procedure reports are released immediately into your electronic medical record. You may view this report before your referring provider. If you have questions, please contact your health care provider. INDICATION: iv infiltrate, pain and swelling COMPARISON: None. TECHNIQUE: Left upper extremity and neck venous ultrasound performed as well as ultrasound of right internal jugular vein including romero scale/2D, color Doppler, and spectral Doppler imaging including spectral waveform analysis. FINDINGS: The internal jugular, innominate, subclavian, axillary, basilic, cephalic, and brachial veins were patent and negative for thrombus. The right internal jugular vein was also patent and negative for thrombus where seen. Remainder negative. IMPRESSION: No evidence for DVT in the left upper extremity and neck venous system. Dictated by Sascha Abbasi MD @ 04/01/2023 11:04:37 AM (Electronically Signed)
--- NOTE | 2023-04-01 10:33 | P.GSPN_ITS ---
Subjective Subjective Date Seen: 04/01/23 Interval history: Patient reports significant improvement in her pain. She has had some drainage from the dressings. Does not want pain meds for home. No concerns. Exam Narrative: Exam Narrative: Gen: alert and oriented, no acute distress : Packing removed and then replaced. Improved erythema to the area with less induration. tumbler tender to the touch. No purulence noted on the bandages. Const: Vital Signs, click to edit/add: Vital Signs - 24 hr 03/31/23 13:00 03/31/23 15:26 03/31/23 18:35 Temperature 98.5 F Pulse Rate Pulse Rate [Pulse Oximeter] Pulse Rate [Right Pulse Oximeter] 87 86 Respiratory Rate 18 20 Blood Pressure Blood Pressure [Ri ght Arm] Blood Pressure [Ri ght Forearm] Blood Pressure [Ri ght Upper Arm] 151/89 H 129/60 Pulse Oximetry 96 92 96 Oxygen Delivery Ne thod Room Air Room Air Room Air Oxygen Flow Rate 03/31/23 18:44 03/31/23 19:40 03/31/23 19:40 Temperature 98.9 F 98.1 F Pulse Rate Pulse Rate [Pulse Oximeter] 82 82 82 Pulse Rate [Right Pulse Oximeter] Respiratory Rate 20 20 20 Blood Pressure Blood Pressure [Ri ght Arm] Blood Pressure [Ri ght Forearm] 147/82 H 120/74 Blood Pressure [Ri ght Upper Arm] Pulse Oximetry 96 93 Oxygen Delivery Ne thod Room Air Room Air Oxygen Flow Rate 03/31/23 19:46 03/31/23 22:00 03/31/23 22:05 Temperature 98.1 F 99.7 F H Pulse Rate 103 H 105 H Pulse Rate [Pulse Oximeter] 82 Pulse Rate [Right Pulse Oximeter] Respiratory Rate 20 18 16 Blood Pressure 179/85 H 180/88 H Blood Pressure [Ri ght Arm] Blood Pressure [Ri ght Forearm] 120/74 Blood Pressure [Ri ght Upper Arm] Pulse Oximetry 93 95 95 Oxygen Delivery Ne thod Room Air OxyMask Oxygen Flow Rate 6 03/31/23 22:10 03/31/23 22:15 03/31/23 22:20 Temperature Pulse Rate 102 H 103 H 99 Pulse Rate [Pulse Oximeter] Pulse Rate [Right Pulse Oximeter] Respiratory Rate 16 16 18 Blood Pressure 182/88 H 168/82 H 185/72 H Blood Pressure [Ri ght Arm] Blood Pressure [Ri ght Forearm] Blood Pressure [Ri ght Upper Arm] Pulse Oximetry 97 97 94 Oxygen Delivery Me thod Nasal Cannula Oxygen Flow Rate 2 03/31/23 22:25 03/31/23 22:30 03/31/23 22:48 Temperature 99.5 F 97.9 F Pulse Rate 99 92 Pulse Rate [Pulse Oximeter] 92 Pulse Rate [Right Pulse Oximeter] Respiratory Rate 16 18 16 Blood Pressure 177/84 H 175/82 H Blood Pressure [Ri ght Arm] 148/87 H Blood Pressure [Ri ght Forearm] Blood Pressure [Ri ght Upper Arm] Pulse Oximetry 97 99 95 Oxygen Delivery Me thod Nasal Cannula Oxygen Flow Rate 1.5 03/31/23 23:00 03/31/23 23:15 03/31/23 23:30 Temperature 97.7 F Pulse Rate Pulse Rate [Pulse Oximeter] 95 93 96 Pulse Rate [Right Pulse Oximeter] Respiratory Rate 16 16 16 Blood Pressure Blood Pressure [Ri ght Arm] 148/88 H 160/82 H 154/78 H Blood Pressure [Ri ght Forearm] Blood Pressure [Ri ght Upper Arm] Pulse Oximetry 93 91 92 Oxygen Delivery Me thod Nasal Cannula Nasal Cannula Oxygen Flow Rate 1.5 1 1 03/31/23 23:45 04/01/23 00:15 04/01/23 01:00 Temperature Pulse Rate Pulse Rate [Pulse Oximeter] 93 91 101 H Pulse Rate [Right Pulse Oximeter] Respiratory Rate 16 16 16 Blood Pressure Blood Pressure [Ri ght Arm] 152/77 H 138/74 118/62 Blood Pressure [Ri ght Forearm] Blood Pressure [Ri ght Upper Arm] Pulse Oximetry 92 91 92 Oxygen Delivery Me thod Nasal Cannula Nasal Cannula Nasal Cannula Oxygen Flow Rate 1 1 1 04/01/23 01:30 04/01/23 02:30 04/01/23 04:00 Temperature Pulse Rate Pulse Rate [Pulse Oximeter] 95 92 108 H Pulse Rate [Right Pulse Oximeter] Respiratory Rate 16 16 16 Blood Pressure Blood Pressure [Ri ght Arm] 113/61 130/71 118/61 Blood Pressure [Ri ght Forearm] Blood Pressure [Ri ght Upper Arm] Pulse Oximetry 91 92 93 Oxygen Delivery Me thod Nasal Cannula Room Air Room Air Oxygen Flow Rate 1 04/01/23 05:00 08/14/23 07:45 04/01/23 07:45 Temperature 97.0 F L Pulse Rate Pulse Rate [Pulse Oximeter] 100 100 Pulse Rate [Right Pulse Oximeter] Respiratory Rate 16 110 H 110 H Blood Pressure Blood Pressure [Ri ght Arm] 120/70 123/81 Blood Pressure [Ri ght Forearm] Blood Pressure [Ri ght Upper Arm] Pulse Oximetry 92 93 Oxygen Delivery Me thod Room Air Room Air Oxygen Flow Rate Progress Note: A&P Assessment and plan (1) Perianal abscess: Status: Acute Assessment and Plan: Patient POD1 I&D perianal abscess. Packing was replaced this morning with patient instructed to remove tomorrow in the shower. Will have her go home with a 10 day course of Augmentin, given her history of DM and the amount of cellulitis seen on exam. Ok to discharge from surgery perspective.
--- NOTE | 2023-04-01 10:37 | P.DS_ITS ---
DS: Providers Provider Date Seen: 04/01/23 Date of admission: 03/31/23 18:17 Primary care physician: Ian Escobedo MD Admitting Clinician: Leon Chi MD Consults: 04/01/23 09:21 Consult to Retail Beauty Specialist [CONS] Routine Comment: ?international tax manager for wound/dressing changes Reason for Consult:: Discharge Planning Needs Attending Physician on discharge: Leon Chi MD Date of Discharge: 04/01/23 DS: Diagnosis Discharge Diagnosis (1) Type 2 diabetes mellitus: Status: Acute (2) Abscess of perineum: Status: Acute DS: Summary Hospital Course Hospital Course: Chief complaint: Randi area pain Narrative: Carmen Torres is a 68 year old female with past medical history of MATIAS (on cpap), Type II DM, morbid obesity pain presenting for evaluation of pain in sacrum. The patient went to a concern in [place] on Saturday (Dimitri Bebeto). She had an uncomfortable chair and sat on the ledge for most of concert. She has had progressive worsening pain and presented to ED where CT AP showed a 4.6 x 3.2 x 2.9 cm area of fluid just to the right the midline in the perineum. The patient was afebrile, HD stable. Notable labs included normal WBC, lactate 3.1. She was given IVF bolus and zosyn. She denies chest pain, sob, fever, nausea, vomiting. IMPRESSION: 1. No pathology in the imaged perineum; patient is being brought back to the CT and will obtain more images further down into the perineum and I will provide an addendum report. 2. Diverticulosis sigmoid colon without any CT evidence of diverticulitis or abscess. 3. Normal appendix. 4. A 17 x 15 mm nonobstructing calculus right lower pole calyx. 5. Cholelithiasis. Operative Note Pre-op diagnosis: Perianal abscess Post-op diagnosis: Same Type of Procedure: Exam under anesthesia. Incision and drainage perianal abscess Indications: Patient is a 68-year-old female who presented to the emergency department with clinical workup consistent with a perianal abscess. Recommendations for incision and drainage in the operating room. Risks and benefits of operative intervention were discussed at length with the patient. Please see consultation note for full discussion. All questions and concerns were addressed with patient agreeing to proceed. Procedure Description: After discussing the risks and benefits of the procedure, the patient signed informed consent.? The operative site was marked and the patient was brought to the operating room. They were placed in the supine position, general anesthesia was administered, and the patient was intubated by Anesthesia without difficulty. The patient was then transferred to the Operating Room table, placed in the prone jackknife position with appropriate bumps and padding. Care was taken to ensure the genitalia and breasts were properly positioned on the hip and chest rolls, respectively. The shoulders and arms were positioned with care to protect the brachial plexus. The buttocks were taped laterally. A sterile prep and drape was in the usual fashion. A formal timeout for patient safety was performed in accordance with hospital protocol, thereby correctly matching this patient with their diagnosis and intended procedure. External examination, digital rectal examination, and anoscopic examination were all done and revealed erythema, induration and fluctuance of the perianal anterior and extending anterior lateral. An 11 blade was used to make a cruciate incision over this area, with good return of pus. A culture was taken. Careful examination failed to identify a perianal fistula. The skin corners of the cruciate incision were trimmed off to allow for proper drainage. A finger was used to bluntly debride the abscess cavity of inflammatory bridges. There appeared to be no undrained collections. Hemostasis was excellent. The resulting cavity measured 6 cm by 4 cm x 3 cm in size. The wound was packed with gauze for hemostasis. The patient tolerated procedure well. There were no apparent complications. Instrument, sponge, and needle counts were correct at the end of the case. Findings: Perianal abscess Anesthesia: GETA Surgeon: Kelle Guillermo MD Estimated blood loss (mL): 2 Condition: stable Disposition: PACU Time Spent with Patient Time attestation: Total time spent providing and/or coordinating discharge services: Time spent: Greater than 30 minutes Exam Narrative: Exam Narrative: Gen: no acute distress HEENT: NCAT EOMI mmm Neck: Supple CV: RRR normal s1 s2 Lungs: CTAB Abd: Soft,nt, nd Neuro: Alert, oriented, CN grossly intact; nonfocal screening?exam Psych: appropriate affect MSK: age appropriate muscle mass Skin; Warm, dry no rash on face Const: Vital Signs, click to edit/add: Vital Signs - 24 hr 03/31/23 13:00 03/31/23 15:26 03/31/23 18:35 Temperature 98.5 F Pulse Rate Pulse Rate [Pulse Oximeter] Pulse Rate [Right Pulse Oximeter] 87 86 Respiratory Rate 18 20 Blood Pressure Blood Pressure [Ri ght Arm] Blood Pressure [Ri ght Forearm] Blood Pressure [Ri ght Upper Arm] 151/89 H 129/60 Pulse Oximetry 96 92 96 Oxygen Delivery Me thod Room Air Room Air Room Air Oxygen Flow Rate 03/31/23 18:44 03/31/23 19:40 03/31/23 19:40 Temperature 98.9 F 98.1 F Pulse Rate Pulse Rate [Pulse Oximeter] 82 82 82 Pulse Rate [Right Pulse Oximeter] Respiratory Rate 20 20 20 Blood Pressure Blood Pressure [Ri ght Arm] Blood Pressure [Ri ght Forearm] 147/82 H 120/74 Blood Pressure [Ri ght Upper Arm] Pulse Oximetry 96 93 Oxygen Delivery Me thod Room Air Room Air Oxygen Flow Rate 03/31/23 19:46 03/31/23 22:00 03/31/23 22:05 Temperature 98.1 F 99.7 F H Pulse Rate 103 H 105 H Pulse Rate [Pulse Oximeter] 82 Pulse Rate [Right Pulse Oximeter] Respiratory Rate 20 18 16 Blood Pressure 179/85 H 180/88 H Blood Pressure [Ri ght Arm] Blood Pressure [Ri ght Forearm] 120/74 Blood Pressure [Ri ght Upper Arm] Pulse Oximetry 93 95 95 Oxygen Delivery Me thod Room Air OxyMask Oxygen Flow Rate 6 03/31/23 22:10 03/31/23 22:15 03/31/23 22:20 Temperature Pulse Rate 102 H 103 H 99 Pulse Rate [Pulse Oximeter] Pulse Rate [Right Pulse Oximeter] Respiratory Rate 16 16 18 Blood Pressure 182/88 H 168/82 H 185/72 H Blood Pressure [Ri ght Arm] Blood Pressure [Ri ght Forearm] Blood Pressure [Ri ght Upper Arm] Pulse Oximetry 97 97 94 Oxygen Delivery Me thod Nasal Cannula Oxygen Flow Rate 2 03/31/23 22:25 03/31/23 22:30 03/31/23 22:48 Temperature 99.5 F 97.9 F Pulse Rate 99 92 Pulse Rate [Pulse Oximeter] 92 Pulse Rate [Right Pulse Oximeter] Respiratory Rate 16 18 16 Blood Pressure 177/84 H 175/82 H Blood Pressure [Ri ght Arm] 148/87 H Blood Pressure [Ri ght Forearm] Blood Pressure [Ri ght Upper Arm] Pulse Oximetry 97 99 95 Oxygen Delivery Me thod Nasal Cannula Oxygen Flow Rate 1.5 03/31/23 23:00 03/31/23 23:15 03/31/23 23:30 Temperature 97.7 F Pulse Rate Pulse Rate [Pulse Oximeter] 95 93 96 Pulse Rate [Right Pulse Oximeter] Respiratory Rate 16 16 16 Blood Pressure Blood Pressure [Ri ght Arm] 148/88 H 160/82 H 154/78 H Blood Pressure [Ri ght Forearm] Blood Pressure [Ri ght Upper Arm] Pulse Oximetry 93 91 92 Oxygen Delivery Me thod Nasal Cannula Nasal Cannula Oxygen Flow Rate 1.5 1 1 03/31/23 23:45 04/01/23 00:15 04/01/23 01:00 Temperature Pulse Rate Pulse Rate [Pulse Oximeter] 93 91 101 H Pulse Rate [Right Pulse Oximeter] Respiratory Rate 16 16 16 Blood Pressure Blood Pressure [Ri ght Arm] 152/77 H 138/74 118/62 Blood Pressure [Ri ght Forearm] Blood Pressure [Ri ght Upper Arm] Pulse Oximetry 92 91 92 Oxygen Delivery Me thod Nasal Cannula Nasal Cannula Nasal Cannula Oxygen Flow Rate 1 1 1 04/01/23 01:30 04/01/23 02:30 04/01/23 04:00 Temperature Pulse Rate Pulse Rate [Pulse Oximeter] 95 92 108 H Pulse Rate [Right Pulse Oximeter] Respiratory Rate 16 16 16 Blood Pressure Blood Pressure [Ri ght Arm] 113/61 130/71 118/61 Blood Pressure [Ri ght Forearm] Blood Pressure [Ri ght Upper Arm] Pulse Oximetry 91 92 93 Oxygen Delivery Me thod Nasal Cannula Room Air Room Air Oxygen Flow Rate 1 04/01/23 05:00 04/01/23 07:45 04/01/23 07:45 Temperature 97.0 F L Pulse Rate Pulse Rate [Pulse Oximeter] 100 100 Pulse Rate [Right Pulse Oximeter] Respiratory Rate 16 110 H 110 H Blood Pressure Blood Pressure [Ri ght Arm] 120/70 123/81 Blood Pressure [Ri ght Forearm] Blood Pressure [Ri ght Upper Arm] Pulse Oximetry 92 93 Oxygen Delivery Me thod Room Air Room Air Oxygen Flow Rate DS: Data Data Completed and Pending Labs on day of discharge: Labs from last 24 hours 04/01/23 03/31/23 06:20 13:50 WBC 9.87 10.90 RBC 4.58 4.93 Hgb 9.2 L 10.0 L Hct 34.0 36.2 MCV 74 L 73 L MCH 20 L 20 L MCHC 27 L 28 L RDW Coeff of Susan 18.5 H 18.2 H Plt Count 269 285 Neut % (Auto) 69.8 75.2 H Lymph % (Auto) 16.8 L 12.9 L [place] % (Auto) 10.3 10.1 Eos % (Auto) 1.4 1.3 Baso % (Auto) 0.4 0.3 Neut # (Auto) 6.88 8.20 H Lymph # (Auto) 1.70 1.40 [place] # (Auto) 1.00 H 1.10 H Eos # (Auto) 0.14 0.14 Baso # (Auto) 0.04 0.03 Abs Immat Gran (auto) 0.13 0.02 Imm/Tot Granulo (auto) 1.3 0.2 Diff Slide Review Acceptable Review Sodium 137 136 Potassium 4.1 4.0 Chloride 100 98 Carbon Dioxide 31 27 BUN 24 27 Creatinine 1.1 1.2 Estimated Creat Clear 47.10 44.85 Estimated GFR 55 50 Glucose 227 H 192 H Hemoglobin A1c 7.27 H Lactate 1.1 3.1 H Calcium 8.3 L 8.8 POC Creatinine 1.3 Preliminary micro results at discharge 03/31/23 22:45 Aerobic Culture - Preliminary Buttock Culture in Progress Anaerobic Culture - Preliminary Culture in Progress Discharge Plan Discharge Disposition: Home, Self-Care Date of Admission: 03/31/23 18:17 Attending Provider on Discharge: Leon Chi Primary Care Provider: Ian Escobedo Condition: Improved Anticipated Discharge Date/Time: 04/01/23 10:30 Discharge Medications: New senna 8.6 mg capsule 8.6 mg PO DAILY PRN (Reason: constipation) Qty: 90 0RF amoxicillin-pot clavulanate 875-125 mg tablet 1 tab PO BID Qty: 19 0RF Continued (DME) diabetic supplies, miscellan. Misc See Rx Instructions .ROUTE Rx Instructions: As directed Invokana 100 mg tablet 100 mg PO DAILY cyanocobalamin (vitamin B-12) 1,000 mcg tablet 1,000 mcg PO gabapentin 400 mg capsule 400 mg PO losartan 100 mg tablet 100 mg PO atorvastatin 40 mg tablet 40 mg PO DAILY metformin 1,000 mg tablet 1,000 mg PO Novolin 70-30 FlexPen U-100 100 unit/mL (70-30) insulin pen subcut (DME) pen needle, diabetic [BD Rere 2nd Gen Pen Needle] 32 gauge x 5/32 needle See Rx Instructions .ROUTE .MEDSUPPLY Qty: 50 Rx Instructions: As directed spironolactone 25 mg tablet 25 mg PO hydrochlorothiazide 25 mg tablet 25 mg PO metoprolol tartrate 100 mg tablet 100 mg PO omeprazole 20 mg capsule,delayed release(DR/EC) 20 mg PO Discharge Orders: Discharge Order (Routine); Ordered 04/01/23 Ordered By: Leon Chi Patient Education: Deep Sedation (DC), Rectal Abscess (DC) Additional Instructions: Soak the area in a bath or with a handheld shower 3x a day and after bowel movements. You do have packing in place. Remove this packing tomorrow morning in the shower. NO need to repack the wound. The wound will remain open and continue to drain. Use large pads to catch the drainage. Call the clinic if you have an increase in drainage, pain or fevers at home. Activity Level: Activity as Tolerated Discharge Diet: Diabetic Follow Up Appointments: Kelle Giullermo MD [Staff Physician] - ([facility]. Please schedule 04/10/23 wound check. Post hospital follow up in 5-7 days with PCP or PCP clinic) Ian Escobedo MD [Primary Care Provider] - Forms: [employer] Info Instructions
[2023-04-01] MEDS: AMOXICILLIN/CLAVULANATE 875 mg/125 mg TABLET PO (10:48)
--- NOTE | 2023-04-01 13:20 | PC.NURSE ---
discharge. pt has been pleasant pain is 3/10 worse with dressing change. Dr. Guillermo was in to do dressing change. SL was bad and MD said we can stop IV and switch to po antibiotics. she is eating, drinking and voiding. she is up abd cristine. went over discharge packet went over medications, appointments, instruction and education. pt went over and signed personal belonging list. she took all belongings and paper with her. she got a w/c ride to her car. she drover her self home
== END 2023-04-01 13:00 | disposition home or self-care (01) | DRG 603 ==
LOC: ED 17:23 → MEDSURG 17:51
PROVIDERS: Surgery; Admitting Provider Hospitalist; Emergency Provider Emergency Medicine; PCP Family Medicine; Visit Provider Internal Medicine
PROC: 0J9B0ZZ Drainage of Perineum Subcutaneous Tissue and Fascia, Open Approach (ICD-10-PCS; CPT 46040; principal; 2023-03-31 21:00)
DX: L02.215 Cutaneous abscess of perineum (principal); Z68.43 Body mass index [BMI] 50.0-59.9, adult; I12.9 Hypertensive chronic kidney disease with stage 1 through stage 4 chronic kidney disease, or unspecified chronic kidney disease; E11.22 Type 2 diabetes mellitus with diabetic chronic kidney disease; N18.30 Chronic kidney disease, stage 3 unspecified; D63.1 Anemia in chronic kidney disease; K21.9 Gastro-esophageal reflux disease without esophagitis; G47.33 Obstructive sleep apnea (adult) (pediatric); Z99.89 Dependence on other enabling machines and devices; E66.01 Morbid (severe) obesity due to excess calories; E11.40 Type 2 diabetes mellitus with diabetic neuropathy, unspecified; Z79.4 Long term (current) use of insulin; Z79.84 Long term (current) use of oral hypoglycemic drugs; Z79.01 Long term (current) use of anticoagulants
CPT/HCPCS: 00400; 36415; 74177; 80048; 82565; 82962; 83036; 83605; 85025; 87070; 87075; 87077; 87186; 87205; 93971; 99140; 99284; A9270; J0330; J0665; J1885; J2001; J2405; J2543; J2704; J3010; J7030; Q9967